=== PATIENT | male | born 1980 | race African-American/Black ===

== ENCOUNTER 2022-12-19 15:23 | Emergency (ER) | payer OTHER ==
[~2022-12-19] VITALS: Ht 180.3 cm; Wt 93.0 kg
[2022-12-19 15:31] VITALS: BP 159/98
[2022-12-19] MEDS ORDERED: LIDOCAINE HCL 1% 20ML VIAL (Pyxis) INJ INFIL ONE (18:45)
[2022-12-19] MEDS ORDERED: BACITRACIN ZINC OINT UDPKT TOP ONE (19:00)
[2022-12-19] MEDS ORDERED: TETANUS, DIPHTHERIA, PERTUSSIS VAC/PF 0.5ML (>10YR OLD) IM ONE (19:00)
[2022-12-19] MEDS ORDERED: BO1 TP (19:04)
== END 2022-12-19 19:34 | disposition home or self-care (01) ==
LOC: ER 15:23
DX: S61.215A Laceration without foreign body of left ring finger without damage to nail, initial encounter (principal); W26.8XXA Contact with other sharp object(s), not elsewhere classified, initial encounter; Y93.89 Activity, other specified; Y92.89 Other specified places as the place of occurrence of the external cause; Y99.8 Other external cause status
CPT/HCPCS: 12001; 99282; J3490; Z7610; 90715